=== PATIENT | female | born 1990 | race African-American/Black ===

== ENCOUNTER 2016-12-29 16:52 | Emergency (ER) | payer MEDICAID ==
[~2016-12-29] VITALS: Ht 134.6 cm; Wt 68.0 kg
[~2016-12-29 16:52] MED LIST: ALBUTEROL SULF8.5 GM INH; ALBUTEROL2.5 MG/3 M INH; AMOXICILLIN500 M1 PO; AZITHROMYCIN250 MG ORAL; BENADRYL25 M3 PO; MEDROL DOSEPAK4 MG ORAL; PERMETHRIN60 GM TOPIC; PREDNISONE20 MG ORAL
[2016-12-29] MEDS ORDERED: Methocarbamol 750mg tab ORAL ONE (17:30)
[2016-12-29] MEDS ORDERED: IBUPROFEN600 MG ORAL (18:22)
[2016-12-29] MEDS ORDERED: ROBAXIN-750750 MG PO (18:22)
[2016-12-29 19:00] VITALS: BP 123/78
[2016-12-29 19:14] VITALS: BP 123/78
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
== END 2016-12-29 19:14 | disposition home or self-care (01) ==
LOC: EMR 17:37
DX: S80.01XA Contusion of right knee, initial encounter (principal); M54.2 Cervicalgia; T14.8 Other injury of unspecified body region; V43.52XA Car driver injured in collision with other type car in traffic accident, initial encounter; Y93.9 Activity, unspecified; Y92.410 Unspecified street and highway as the place of occurrence of the external cause
CPT/HCPCS: 99284